=== PATIENT | male | born 1995 | race Caucasian/White ===

== ENCOUNTER 2018-10-26 09:14 | Emergency (ER) | payer MEDICAID ==
[~2018-10-26] VITALS: Ht 182.9 cm; Wt 90.0 kg
[2018-10-26] MEDS ORDERED: normal saline 1000ML IV soln IVB ONE (09:40)
[2018-10-26] MEDS ORDERED: diphenhydrAMINE 50 mg/ml inj IV ONE (09:40)
[2018-10-26] MEDS ORDERED: ondansetron/PF 4mg/2ml inj IV ONE (09:40)
[2018-10-26] MEDS ORDERED: methylPREDNISolone sod succ 125mg/2ml vial IV ONE (09:40)
[2018-10-26 10:46] LABS: BASOPHILS % (AUTO) 0.2 % (0-1); EOSINOPHILS # (AUTO) 0.8 X10'3 (0-0.9); EOSINOPHILS % (AUTO) 5.9 % (0-6); HEMATOCRIT 48.1 % (42.0-52.0); HEMOGLOBIN 16.6 g/dl (14.0-17.9); LYMPHOCYTES # (AUTO) 2.4 X10'3 (1.1-4.8); LYMPHOCYTES % (AUTO) 17.7 % (21-51); MEAN CORPUSCULAR HEMOGLOBIN 30.7 PG (27.0-31.0); MEAN CORPUSCULAR HGB CONC 34.5 g/dL (33.0-36.5); MEAN CORPUSCULAR VOLUME 88.9 FL (78-98); MEAN PLATELET VOLUME 8.7 FL (7.4-10.4); MONOCYTES # (AUTO) 0.9 X10'3 (0-0.9); MONOCYTES % (AUTO) 6.6 % (2-12); NEUTROPHILS # (AUTO) 9.4 X10'3 (1.8-7.7); NEUTROPHILS % (AUTO) 69.6 % (42-75); PLATELET COUNT 216 X10'3 (140-440); RED BLOOD COUNT 5.42 X10'6 (4.70-6.10); RED CELL DISTRIBUTION WIDTH 13.1 % (11.5-14.5); WHITE BLOOD COUNT 13.5 X10'3 (4.5-11.0)
[2018-10-26 10:54] LABS: ALANINE AMINOTRANSFERASE 28 U/L (12-78); ALBUMIN 4.1 G/DL (3.4-5.0); ALBUMIN/GLOBULIN RATIO 1.1 (1.1-1.5); ALKALINE PHOSPHATASE 126 IU/L (46-116); ANION GAP 12 (8-16); ASPARTATE AMINO TRANSFERASE 24 U/L (10-37); BILIRUBIN,TOTAL 0.7 MG/DL (0.1-1.0); BLOOD UREA NITROGEN 21 MG/DL (7-18); BUN/CREATININE RATIO 17.1 (5.4-32.0); CALCIUM 9.4 MG/DL (8.5-10.1); CHLORIDE 103 MMOL/L (99-107); CREATININE 1.23 MG/DL (0.60-1.10); GLUCOSE 107 MG/DL (70-104); POTASSIUM 3.8 MMOL/L (3.5-5.1); SODIUM 139 MMOL/L (135-145); TOTAL CARBON DIOXIDE 24.1 MMOL/L (24-32); TOTAL PROTEIN 7.8 G/DL (6.4-8.2); eGFR 74 ML/MIN
[2018-10-26] MEDS ORDERED: ONDA4TAB12 PO (11:08)
[2018-10-26] MEDS ORDERED: PRED20TA PO (11:14)
[2018-10-26 11:18] VITALS: BP 108/74
== END 2018-10-26 11:20 | disposition home or self-care (01) ==
LOC: ER 09:14
DX: T78.40XA Allergy, unspecified, initial encounter (principal); J45.909 Unspecified asthma, uncomplicated; G80.9 Cerebral palsy, unspecified; F12.90 Cannabis use, unspecified, uncomplicated; Z88.1 Allergy status to other antibiotic agents; Z79.899 Other long term (current) drug therapy; X58.XXXA Exposure to other specified factors, initial encounter
CPT/HCPCS: 36415; 80053; 85025; 96374; 96375; 99283; J1200; J2405; J2930; J7030

== ENCOUNTER 2020-08-25 01:31 | Inpatient (IN) | payer MEDICAID ==
[2020-08-25] VITALS (15 sets, daily range): BP systolic 117–143; BP diastolic 72–92
[~2020-08-25] VITALS: Ht 182.9 cm; Wt 88.5 kg
[~2020-08-25 01:31] MED LIST: ONDA4TAB12 PO
[2020-08-25] MEDS ORDERED: LORazepam 2 mg/ml vial IM ONE (02:20)
[2020-08-25] MEDS ORDERED: LORazepam 2 mg/ml vial ONE (02:20)
[2020-08-25] MEDS ORDERED: normal saline 1000ML IV soln IVB ONE ×2 (02:45→05:00)
[2020-08-25] MEDS ORDERED: magnesium 2GM in 50ml NS 50 ML IV ONE (02:45)
[2020-08-25] MEDS ORDERED: phenobarbital inj 260 MG in normal saline 100ml IV soln 100 ML IV ONE ×2 (02:45→03:05)
[2020-08-25] MEDS ORDERED: thiamine inj. 100 MG in normal saline 100ml IV soln 99 ML IV ONE (02:45)
[2020-08-25 02:56] LABS: BASOPHILS # (AUTO) 0.1 X10'3 (0-0.2); BASOPHILS % (AUTO) 0.2 % (0-1); EOSINOPHILS # (AUTO) 0.1 X10'3 (0-0.9); EOSINOPHILS % (AUTO) 0.2 % (0-6); HEMATOCRIT 50.4 % (42.0-52.0); HEMOGLOBIN 16.7 g/dl (14.0-17.9); LYMPHOCYTES # (AUTO) 1.4 X10'3 (1.1-4.8); LYMPHOCYTES % (AUTO) 5.1 % (21-51); MEAN CORPUSCULAR HEMOGLOBIN 31.3 PG (27.0-31.0); MEAN CORPUSCULAR HGB CONC 33.1 g/dL (33.0-36.5); MEAN CORPUSCULAR VOLUME 94.7 FL (78-98); MONOCYTES # (AUTO) 1.9 X10'3 (0-0.9); MONOCYTES % (AUTO) 6.7 % (2-12); NEUTROPHILS # (AUTO) 24.2 X10'3 (1.8-7.7); NEUTROPHILS % (AUTO) 87.8 % (42-75); PLATELET COUNT 313 X10'3 (140-440); RED BLOOD COUNT 5.32 X10'6 (4.70-6.10); RED CELL DISTRIBUTION WIDTH 12.8 % (11.5-14.5)
[2020-08-25 02:58] LABS: WHITE BLOOD COUNT 27.6 X10'3 (4.5-11.0)
[2020-08-25] MEDS ORDERED: phenobarbital inj 260 MG in normal saline 100ml IV soln 98 ML IV ONE (03:00)
[2020-08-25 03:13] LABS: ALANINE AMINOTRANSFERASE 26 U/L (12-78); ALBUMIN 4.7 G/DL (3.4-5.0); ALBUMIN/GLOBULIN RATIO 1.1 (1.1-1.5); ALKALINE PHOSPHATASE 163 IU/L (46-116); ANION GAP 28 (8-16); ASPARTATE AMINO TRANSFERASE 27 U/L (10-37); BILIRUBIN,TOTAL 0.4 MG/DL (0.1-1.0); BLOOD UREA NITROGEN 12 MG/DL (7-18); BUN/CREATININE RATIO 8.3 (5.4-32.0); CALCIUM 9.3 MG/DL (8.5-10.1); CHLORIDE 103 MMOL/L (99-107); CREATININE 1.44 MG/DL (0.60-1.10); ETHANOL < 0.010 GM/DL (0.0-0.010); GLUCOSE 212 MG/DL (70-104); MAGNESIUM 2.8 MG/DL (1.5-2.4); SODIUM 144 MMOL/L (135-145); TOTAL PROTEIN 9.1 G/DL (6.4-8.2); eGFR 60 ML/MIN
[2020-08-25 03:24] LABS: POTASSIUM 2.9 MMOL/L (3.5-5.1)
[2020-08-25 03:25] LABS: TOTAL CARBON DIOXIDE 13.3 MMOL/L (24-32)
[2020-08-25] MEDS ORDERED: dexamethasone sod phosphate 10mg/ml inj IV STA (03:36)
[2020-08-25] MEDS ORDERED: CefTRIAXone 2gm/D5W 50ml BAG 50 ML IV ONE (03:40)
[2020-08-25] MEDS ORDERED: iohexol 350MG/ML 100ml bottle IV ONE ×2 (04:57→06:45)
[2020-08-25] MEDS ORDERED: LIDOcaine 2% 10ml TOPICAL JELLY (Urojet) TP ONE (05:00)
[2020-08-25 05:21] LABS: GLUCOSE,CSF 131 MG/DL (40-75); TOTAL PROTEIN,CSF 43 MG/DL (15-45)
[2020-08-25 05:33] LABS: CLARITY,URINE SLIGHTLY CLOUDY (Clear); COLOR,URINE YELLOW (Yellow); GLUCOSE, URINE 100 mg/dl (Neg); KETONES,URINE 15 mg/dl (Neg); LEUKOCYTE ESTERASE ,URINE NEGATIVE (Neg); NITRITES, URINE NEGATIVE (Neg); OCCULT BLOOD,URINE LARGE (Neg); PROTEIN,URINE 30 mg/dl (Neg); UROBILINOGEN,URINE 0.2 E.U/dL (0.2-1.0)
[2020-08-25 05:48] LABS: UA COLLECTION TYPE FOLEY CATH
[2020-08-25 05:49] LABS: WBC,URINE 0-4 /HPF (0-4)
[2020-08-25 05:50] LABS: BACTERIA,URINE FEW /HPF (Neg); HYALINE CASTS 0-3 /LPF (NEGATIVE); SQUAMOUS EPITHELIAL CELL,UR FEW /LPF (FEW); URIC ACID CRYSTALS 4+ /HPF (NEGATIVE)
[2020-08-25] MEDS ORDERED: vancomycin/NS 1 GM ADD-VANTAGE 250 ML IV ONE (05:50)
[2020-08-25 06:06] LABS: APPEARANCE,CSF CLEAR; CSF RBC 32 /CU MM (0); CSF SUPERNATANT COLOR COLORLESS; CSF VOLUME 7.5 ML; TUBE# COUNTED 1
[2020-08-25 06:06] LABS: URINE AMPHETAMINE SCREEN NEGATIVE (Neg); URINE BARBITUATE SCREEN NEGATIVE (Neg); URINE BENZODIAZEPINES SCREEN NEGATIVE (Neg); URINE CANNABINOID SCREEN POSITIVE (Neg); URINE COCAINE SCREEN NEGATIVE (Neg); URINE METHADONE SCREEN NEGATIVE (Neg); URINE OPIATE SCREEN NEGATIVE (Neg); URINE PHENCYCLIDINE SCREEN NEGATIVE (Neg)
[2020-08-25 06:07] LABS: ABG BASE EXCESS -5.1 mmol/L (-2.0-2.0); ABG HCO3 19.3 mmol/L (22.0-26.0); ABG OXYGEN SATURATION 92.7 % (94-97); ABG PCO2 (T) 33.8 mmHg (35.0-48.0); ABG PO2 (T) 63.6 mmHg (75.0-100.0); ALLEN'S TEST POSITIVE; FCOHb 0.5 % (0.0-3.9); FMetHb 0.3 % (0.0-1.5); PATIENT TEMPERATURE 36.4; RESPIRATORY RATE 18 b/min
[2020-08-25 06:10] LABS: CSF WBC CT 7 /CU MM (0-5)
[2020-08-25 06:11] LABS: APPEARANCE,CSF CLEAR; CSF SUPERNATANT COLOR COLORLESS; CSF VOLUME 7.5 ML; TUBE# COUNTED 4
[2020-08-25 06:12] LABS: CSF RBC 1 /CU MM (0); CSF WBC CT 7 /CU MM (0-5)
[2020-08-25 06:33] LABS: C-REACTIVE PROTEIN 0.26 MG/DL (0.0-0.5); FERRITIN 176 NG/ML (26-388); LACTATE DEHYDROGENASE 343 U/L (85-227)
[2020-08-25 06:39] LABS: HEMOGLOBIN A1C 5.7 % (4.5-6.2)
--- NOTE | 2020-08-25 06:40 | NUR ---
TELE NEURO IN PROGRESS
[2020-08-25] MEDS ORDERED: Potassium Cl inj 40 MEQ in normal saline 250ml IV soln 250 ML IV ONE (07:20)
--- NOTE | 2020-08-25 07:20 | NUR ---
CALLED DR. TUCKER. K 2.9 NEW ORDER 40MEQ KCL IV NOW. NO ICE CHIPS FOR NOW
[2020-08-25 07:23] LABS: PLATELET ESTIMATE NORMAL; TOTAL CELLS COUNTED 100
--- NOTE | 2020-08-25 07:47 | NUR ---
BACK FROM CT SCAN VIA RNEY.. EPISODE OF VOMITING X 1 BEFORE CTA STARTED.
--- NOTE | 2020-08-25 08:17 | NUR ---
Dana estrada in [facility] - 08/25/20 at [address] zapata at bedside
[2020-08-25] MEDS ORDERED: Potassium Cl 40 MEQ in sodium chloride 0.45% 500 ML IV ONE (08:30)
--- NOTE | 2020-08-25 08:45 | NUR ---
NO SZ ACTIVITY NOTED
[2020-08-25] MEDS ORDERED: magnesium hydroxide 30ml (MOM) UD suspension PO PRN (09:10)
[2020-08-25] MEDS ORDERED: morphine 4 MG/ML inj SYRINge IV PRN (09:10)
[2020-08-25] MEDS ORDERED: normal saline 1000ml 1,000 ML IV SCH (09:10)
[2020-08-25] MEDS ORDERED: acetaminophen 325mg tablet PO PRN ×2 (09:10)
[2020-08-25] MEDS ORDERED: potassium Cl 20 mEq SR tablet PO PRN (09:10)
--- NOTE | 2020-08-25 10:30 | NUR ---
Pt arrived to unit from ED via gurney. Drowsy, respirations unlabored.
[2020-08-25] MEDS: K, MAG and/or Phos replacement - Verify level? MC SCH (11:00)
[2020-08-25] MEDS ORDERED: NO HOME MEDS (11:13)
[2020-08-25] MEDS: normal saline 1000ml 1,000 ML IV SCH ×2 (12:38→19:57)
[2020-08-25] MEDS: ondansetron/PF 4mg/2ml inj IV PRN ×2 (13:41→23:34)
[2020-08-25] MEDS: LORazepam 2 mg/ml vial IV PRN (16:25)
[2020-08-25] MEDS: piperacillin/tazo 3.375gm/50ml 50 ML IV SCH ×2 (17:03→23:40)
--- NOTE | 2020-08-25 18:24 | NUR ---
Problems reprioritized. Patient report given, questions answered & plan of care reviewed with CHRISTIANE De León.
[2020-08-25] MEDS: vancomycin/NS 1 GM ADD-VANTAGE 250 ML IV SCH (19:56)
[2020-08-25] MEDS: morphine 2 MG/ML inj. syringe IV PRN (23:34)
[2020-08-26] VITALS (15 sets, daily range): BP systolic 119–150; BP diastolic 51–92
[2020-08-26] MEDS: LORazepam 2 mg/ml vial IV PRN (00:36)
[2020-08-26] MEDS ORDERED: metoclopramide 5 mg/ml inj IV ONE (01:20)
[2020-08-26] MEDS: albuterol 2.5 MG/3 ML nebule NEB PRN (02:01)
[2020-08-26] MEDS: vancomycin/NS 1 GM ADD-VANTAGE 250 ML IV SCH ×2 (04:27→17:50)
[2020-08-26] MEDS: normal saline 1000ml 1,000 ML IV SCH (04:28)
[2020-08-26] MEDS: ondansetron/PF 4mg/2ml inj IV PRN (07:12)
[2020-08-26] MEDS: morphine 2 MG/ML inj. syringe IV PRN (07:12)
[2020-08-26] MEDS: piperacillin/tazo 3.375gm/50ml 50 ML IV SCH ×2 (07:13→15:28)
[2020-08-26 07:44] LABS: ALANINE AMINOTRANSFERASE 35 U/L (12-78); ALBUMIN 3.6 G/DL (3.4-5.0); ALBUMIN/GLOBULIN RATIO 1.1 (1.1-1.5); ALKALINE PHOSPHATASE 107 IU/L (46-116); ANION GAP 9 (8-16); ASPARTATE AMINO TRANSFERASE 121 U/L (10-37); BILIRUBIN,TOTAL 0.7 MG/DL (0.1-1.0); BLOOD UREA NITROGEN 10 MG/DL (7-18); BUN/CREATININE RATIO 10.1 (5.4-32.0); CALCIUM 8.3 MG/DL (8.5-10.1); CHLORIDE 107 MMOL/L (99-107); CREATININE 0.99 MG/DL (0.60-1.10); GLUCOSE 89 MG/DL (70-104); POTASSIUM 3.4 MMOL/L (3.5-5.1); SODIUM 141 MMOL/L (135-145); TOTAL CARBON DIOXIDE 24.6 MMOL/L (24-32); eGFR > 90 ML/MIN
[2020-08-26 07:51] LABS: BASOPHILS % (AUTO) 0.2 % (0-1); EOSINOPHILS % (AUTO) 0.4 % (0-6); HEMATOCRIT 40.5 % (42.0-52.0); HEMOGLOBIN 13.8 g/dl (14.0-17.9); LYMPHOCYTES % (AUTO) 9.3 % (21-51); MEAN CORPUSCULAR VOLUME 91.2 FL (78-98); MEAN PLATELET VOLUME 9.4 FL (7.4-10.4); MONOCYTES # (AUTO) 0.7 X10'3 (0-0.9); MONOCYTES % (AUTO) 6.2 % (2-12); NEUTROPHILS # (AUTO) 9.4 X10'3 (1.8-7.7); NEUTROPHILS % (AUTO) 83.9 % (42-75); PLATELET COUNT 204 X10'3 (140-440); RED BLOOD COUNT 4.44 X10'6 (4.70-6.10); RED CELL DISTRIBUTION WIDTH 12.9 % (11.5-14.5); WHITE BLOOD COUNT 11.3 X10'3 (4.5-11.0)
[2020-08-26] MEDS: K, MAG and/or Phos replacement - Verify level? MC SCH (08:00)
[2020-08-26] MEDS: HYDROcodone/acetaminophen 5mg/325mg tablet PO PRN (11:30)
[2020-08-26] MEDS: potassium Cl 20 mEq SR tablet PO PRN ×3 (11:30→19:52)
[2020-08-27] MEDS: piperacillin/tazo 3.375gm/50ml 50 ML IV SCH ×2 (00:12→07:31)
[2020-08-27 02:00] VITALS: BP 147/106
[2020-08-27] MEDS: LORazepam 2 mg/ml vial IV PRN (02:05)
[2020-08-27] MEDS ORDERED: VANCOMYCIN LEVEL IV ONE (04:30)
[2020-08-27] MEDS: vancomycin/NS 1 GM ADD-VANTAGE 250 ML IV SCH (05:24)
[2020-08-27 06:26] LABS: ALANINE AMINOTRANSFERASE 78 U/L (12-78); ALBUMIN 3.5 G/DL (3.4-5.0); ALKALINE PHOSPHATASE 97 IU/L (46-116); ANION GAP 13 (8-16); ASPARTATE AMINO TRANSFERASE 351 U/L (10-37); BILIRUBIN,TOTAL 0.8 MG/DL (0.1-1.0); BLOOD UREA NITROGEN 6 MG/DL (7-18); BUN/CREATININE RATIO 7.3 (5.4-32.0); CALCIUM 8.9 MG/DL (8.5-10.1); CHLORIDE 105 MMOL/L (99-107); CREATININE 0.82 MG/DL (0.60-1.10); GLUCOSE 87 MG/DL (70-104); POTASSIUM 3.8 MMOL/L (3.5-5.1); SODIUM 142 MMOL/L (135-145); TOTAL CARBON DIOXIDE 24.1 MMOL/L (24-32); TOTAL PROTEIN 6.9 G/DL (6.4-8.2); VANCOMYCIN,TROUGH 6.3 UG/ML (6.0-14.0); eGFR > 90 ML/MIN
[2020-08-27 07:09] LABS: BASOPHILS # (AUTO) 0.1 X10'3 (0-0.2); BASOPHILS % (AUTO) 0.7 % (0-1); EOSINOPHILS # (AUTO) 0.3 X10'3 (0-0.9); EOSINOPHILS % (AUTO) 4.4 % (0-6); HEMOGLOBIN 14.3 g/dl (14.0-17.9); LYMPHOCYTES # (AUTO) 1.4 X10'3 (1.1-4.8); LYMPHOCYTES % (AUTO) 18.4 % (21-51); MEAN CORPUSCULAR HEMOGLOBIN 30.9 PG (27.0-31.0); MEAN CORPUSCULAR VOLUME 90.8 FL (78-98); MEAN PLATELET VOLUME 8.6 FL (7.4-10.4); MONOCYTES # (AUTO) 0.6 X10'3 (0-0.9); NEUTROPHILS # (AUTO) 5.2 X10'3 (1.8-7.7); NEUTROPHILS % (AUTO) 68.5 % (42-75); PLATELET COUNT 207 X10'3 (140-440); RED BLOOD COUNT 4.62 X10'6 (4.70-6.10); RED CELL DISTRIBUTION WIDTH 12.9 % (11.5-14.5); WHITE BLOOD COUNT 7.6 X10'3 (4.5-11.0)
[2020-08-27 07:18] VITALS: BP 137/87
[2020-08-27] MEDS: HYDROcodone/acetaminophen 5mg/325mg tablet PO PRN (07:31)
[2020-08-27] MEDS: albuterol 2.5 MG/3 ML nebule NEB PRN (07:52)
--- NOTE | 2020-08-27 07:53 | NUR ---
No seizure activity noted at this time. Pt. A & O x 4. Paged MD for diet order and to discuss Lovenox written in MD notes.
[2020-08-27] MEDS: K, MAG and/or Phos replacement - Verify level? MC SCH (08:00)
[2020-08-27] MEDS: enoxaparin 30mg/0.3ml syringe SUBCUT SCH ×2 (09:34→20:10)
--- NOTE | 2020-08-27 09:40 | NUR ---
PAGER ID: [phone] MESSAGE: Blaze Pisano [id number] C/O heartburn after eating broth this AM. May I have an order for Malox? Mother will be here in 20 minutes and is requesting to speak with you. Thank you, Nazia [phone]
[2020-08-27] MEDS: ondansetron/PF 4mg/2ml inj IV PRN (10:39)
--- NOTE | 2020-08-27 10:53 | NUR ---
Pt. threw up 2 x this morning after complaining of heartburn. Zofran given per order.
[2020-08-27 11:00] VITALS: BP 134/86
--- NOTE | 2020-08-27 11:59 | NUR ---
Dr. Lala to see pt Dr. Lala into see the patient at [facility] after tele neuro visit. Dr. lala indicate plan to observe pt another day, MRI with contrast today/seizure medication per Tele neurologist recommendation. Dr. Lala stated he would discontinue antibiotics, as WBC elevation resolved and no infection in CSF is suspected. New order for redraw lactic acid, and protonix 40MG Qam for s/sx heartburn/Gerd. Dr. lala indicated that only one liver enzyme is elevated, and attributes this to recent medications. Pt with his mother at bedside verbalized understanding of new orders and plan of care.
[2020-08-27] MEDS: oxcarbazepine 150mg tablet PO SCH ×2 (12:30→20:10)
[2020-08-27] MEDS ORDERED: vancomycin/NS 1 GM ADD-VANTAGE 250 ML X 1 DOSE IV SCH (13:00)
[2020-08-27 15:00] VITALS: BP 125/63
[2020-08-27] MEDS ORDERED: GADOTERATE MEGLUMINE 7.5 MMOL/15 ML VIAL IV ONE (15:26)
[2020-08-27 18:00] VITALS: BP 133/91
--- NOTE | 2020-08-27 18:00 | NUR ---
report received from CHRISTIANE Mandujano
--- NOTE | 2020-08-27 18:14 | NUR ---
Gave report to Amrit, traveler CHRISTIANE.
[2020-08-27] MEDS: lactobacillus rhamnosus 10,000 MMU CELLS/CAPSULE PO SCH (20:10)
[2020-08-27 22:00] VITALS: BP 117/75
[2020-08-28 02:00] VITALS: BP 137/91
[2020-08-28] MEDS: HYDROcodone/acetaminophen 5mg/325mg tablet PO PRN (03:16)
[2020-08-28] MEDS ORDERED: VANCOMYCIN LEVEL IV ONE (04:30)
[2020-08-28 04:52] LABS: BASOPHILS % (AUTO) 0.9 % (0-1); EOSINOPHILS # (AUTO) 0.3 X10'3 (0-0.9); EOSINOPHILS % (AUTO) 7.2 % (0-6); HEMATOCRIT 41.8 % (42.0-52.0); HEMOGLOBIN 14.6 g/dl (14.0-17.9); LYMPHOCYTES # (AUTO) 0.7 X10'3 (1.1-4.8); LYMPHOCYTES % (AUTO) 14.6 % (21-51); MEAN CORPUSCULAR HEMOGLOBIN 31.4 PG (27.0-31.0); MEAN CORPUSCULAR VOLUME 89.5 FL (78-98); MEAN PLATELET VOLUME 8.3 FL (7.4-10.4); MONOCYTES # (AUTO) 0.8 X10'3 (0-0.9); MONOCYTES % (AUTO) 16.8 % (2-12); NEUTROPHILS # (AUTO) 2.7 X10'3 (1.8-7.7); NEUTROPHILS % (AUTO) 60.5 % (42-75); PLATELET COUNT 200 X10'3 (140-440); RED BLOOD COUNT 4.67 X10'6 (4.70-6.10); RED CELL DISTRIBUTION WIDTH 12.9 % (11.5-14.5); WHITE BLOOD COUNT 4.5 X10'3 (4.5-11.0)
[2020-08-28 04:55] LABS: ALANINE AMINOTRANSFERASE 117 U/L (12-78); ALBUMIN 3.6 G/DL (3.4-5.0); ALKALINE PHOSPHATASE 99 IU/L (46-116); ANION GAP 11 (8-16); ASPARTATE AMINO TRANSFERASE 472 U/L (10-37); BILIRUBIN,TOTAL 0.5 MG/DL (0.1-1.0); BLOOD UREA NITROGEN 7 MG/DL (7-18); BUN/CREATININE RATIO 8.3 (5.4-32.0); CHLORIDE 101 MMOL/L (99-107); CREATININE 0.84 MG/DL (0.60-1.10); GLUCOSE 93 MG/DL (70-104); POTASSIUM 3.5 MMOL/L (3.5-5.1); SODIUM 139 MMOL/L (135-145); TOTAL CARBON DIOXIDE 27.4 MMOL/L (24-32); TOTAL PROTEIN 7.3 G/DL (6.4-8.2); VANCOMYCIN,TROUGH 1.5 UG/ML (6.0-14.0); eGFR > 90 ML/MIN
[2020-08-28 06:00] VITALS: BP 137/88
--- NOTE | 2020-08-28 06:17 | NUR ---
Report given to CHRISTIANE Anderson.
[2020-08-28] MEDS ORDERED: pantoprazole 40mg Tablet.DR PO SCH (07:30)
[2020-08-28] MEDS: lactobacillus rhamnosus 10,000 MMU CELLS/CAPSULE PO SCH (07:47)
[2020-08-28] MEDS: oxcarbazepine 150mg tablet PO SCH (07:47)
[2020-08-28] MEDS: enoxaparin 30mg/0.3ml syringe SUBCUT SCH (07:48)
[2020-08-28] MEDS: K, MAG and/or Phos replacement - Verify level? MC SCH (07:49)
[2020-08-28] MEDS ORDERED: OXCA150T14 PO (09:25)
[2020-08-28] MEDS ORDERED: OMEP20CA15 PO (09:25)
== END 2020-08-28 09:55 | disposition home or self-care (01) | DRG 469 ==
LOC: ER 01:31 → ED HOLD 09:10 → ICU 2S 10:28 → PCU 3S 08-26 16:00
PROVIDERS: ADMIT Surgery Surgical Critical Care; ATTEND Surgery Surgical Critical Care
PROC: B32T1ZZ Computerized Tomography (CT Scan) of Left Pulmonary Artery using Low Osmolar Contrast (ICD-10-PCS; 2020-08-25)
PROC: B32S1ZZ Computerized Tomography (CT Scan) of Right Pulmonary Artery using Low Osmolar Contrast (ICD-10-PCS; 2020-08-25)
PROC: 4A00X4Z Measurement of Central Nervous Electrical Activity, External Approach (ICD-10-PCS; principal; 2020-08-26)
DX: N17.9 Acute kidney failure, unspecified (principal); E87.2 Acidosis; E86.0 Dehydration; E87.6 Hypokalemia; F12.90 Cannabis use, unspecified, uncomplicated; F43.10 Post-traumatic stress disorder, unspecified; Z20.822 Contact with and (suspected) exposure to COVID-19; G40.909 Epilepsy, unspecified, not intractable, without status epilepticus; J45.909 Unspecified asthma, uncomplicated; Z82.0 Family history of epilepsy and other diseases of the nervous system; Z90.49 Acquired absence of other specified parts of digestive tract
CPT/HCPCS: 36415; 36600; 62270; 70450; 70496; 70498; 70551; 70553; 71275; 74174; 74176; 80053; 80202; 80305; 80320; 81001; 82728; 82803; 82945; 82948; 83036; 83605; 83615; 83735; 84145; 84157; 84443; 84484; 85007; 85018; 85025; 85384; 85610; 86140; 87015; 87040; 87070; 87081; 89051; 93005; 94640; 94760; 95816; 96365; 99291; 99292; A9575; G0378; J0696; J1100; J1650; J2060; J2270; J2405; J2543; J2560; J2765; J3370; J3411; J3475; J3480; J7030; Q9967; U0003; U0005

== ENCOUNTER 2021-04-06 17:45 | Emergency (ER) | payer MEDICAID ==
[~2021-04-06] VITALS: Ht 182.9 cm; Wt 100.0 kg
[~2021-04-06 17:45] MED LIST changes: +OMEP20CA15 PO; -ONDA4TAB12 PO; +OXCA150T14 PO
[2021-04-06] MEDS ORDERED: LORazepam 2 mg/ml vial IV ONE (17:50)
[2021-04-06] MEDS ORDERED: normal saline 1000ML IV soln IVB ONE (17:50)
[2021-04-06] MEDS ORDERED: dexamethasone sod phosphate 10mg/ml inj IV STA (17:50)
[2021-04-06] MEDS ORDERED: metoclopramide 5 mg/ml inj IV ONE (17:50)
[2021-04-06] MEDS ORDERED: ketorolac trometh. 30mg/ml inj. IV ONE (17:50)
[2021-04-06 20:24] VITALS: BP 142/95
== END 2021-04-06 20:25 | disposition home or self-care (01) ==
LOC: ER 17:46
DX: G43.909 Migraine, unspecified, not intractable, without status migrainosus (principal); R11.2 Nausea with vomiting, unspecified; J45.909 Unspecified asthma, uncomplicated; F12.90 Cannabis use, unspecified, uncomplicated; Z86.69 Personal history of other diseases of the nervous system and sense organs; Z88.1 Allergy status to other antibiotic agents; Z91.018 Allergy to other foods; Z79.899 Other long term (current) drug therapy
CPT/HCPCS: 96361; 96374; 96375; 99284; J1100; J1885; J2060; J2765; J7030

== ENCOUNTER 2021-04-18 03:20 | Emergency (ER) | payer MEDICAID ==
[~2021-04-18] VITALS: Ht 182.9 cm; Wt 100.0 kg
[2021-04-18 03:28] VITALS: BP 131/88
[2021-04-18] MEDS ORDERED: LIDOcaine 1% W/epiNEPHrine 1:200,000 10ml vial IJ ONE (03:55)
[2021-04-18] MEDS ORDERED: HYDROcodone/acetaminophen 5mg/325mg tablet PO ONE (03:55)
[2021-04-18] MEDS ORDERED: amox tr/potassium clavulanate 875/125mg TAB PO ONE (03:55)
[2021-04-18] MEDS ORDERED: LIDOcaine 1% W/epiNEPHrine 1:100,000 20ml vial IJ ONE (04:00)
--- NOTE | 2021-04-18 07:29 | NUR ---
Patient wound wrapped with gauze roll and patient instructed in wound care and to return to ER in ten days for suture removal
== END 2021-04-18 07:16 | disposition home or self-care (01) ==
LOC: ER 03:20
DX: S61.412A Laceration without foreign body of left hand, initial encounter (principal); G43.909 Migraine, unspecified, not intractable, without status migrainosus; J44.9 Chronic obstructive pulmonary disease, unspecified; F12.10 Cannabis abuse, uncomplicated; Z91.018 Allergy to other foods; W45.8XXA Other foreign body or object entering through skin, initial encounter; Y93.89 Activity, other specified; Y92.89 Other specified places as the place of occurrence of the external cause; Y99.8 Other external cause status
CPT/HCPCS: 12002; 99283

== ENCOUNTER 2021-05-17 02:00 | Emergency (ER) | payer MEDICAID ==
[~2021-05-17] VITALS: Ht 182.9 cm; Wt 100.0 kg
[2021-05-17 02:11] VITALS: BP 139/101
[2021-05-17] MEDS ORDERED: metoclopramide 5 mg/ml inj IM ONE (02:40)
[2021-05-17] MEDS ORDERED: ketorolac trometh inj. 60 MG/2 ML VIAL IM ONE (02:40)
[2021-05-17] MEDS ORDERED: ONDA4TAB6 PO (03:18)
== END 2021-05-17 03:36 | disposition home or self-care (01) ==
LOC: ER 02:01
DX: U07.1 COVID-19 (principal); G43.909 Migraine, unspecified, not intractable, without status migrainosus; R11.2 Nausea with vomiting, unspecified; G40.909 Epilepsy, unspecified, not intractable, without status epilepticus; J45.909 Unspecified asthma, uncomplicated; F12.90 Cannabis use, unspecified, uncomplicated; Z91.018 Allergy to other foods; Z88.1 Allergy status to other antibiotic agents; Z79.899 Other long term (current) drug therapy
CPT/HCPCS: 36415; 96372; 99284; J1885; J2765; U0003; U0005

== ENCOUNTER 2022-08-28 20:46 | Emergency (ER) | payer MEDICAID ==
[~2022-08-28] VITALS: Ht 182.9 cm; Wt 96.8 kg
[~2022-08-28 20:46] MED LIST changes: +ONDA4TAB6 PO
[2022-08-28 21:00] VITALS: BP 135/89
[2022-08-28] MEDS ORDERED: ondansetron 4mg rapidly disintigrating tab PO ONE (22:00)
[2022-08-28] MEDS ORDERED: diphenhydrAMINE 50 mg/ml inj IM ONE (22:00)
[2022-08-28] MEDS ORDERED: proCHLORperazine 10 MG/2 ml inj IM ONE (22:00)
[2022-08-28] MEDS ORDERED: ONDA4TAB12 PO (22:39)
--- NOTE | 2022-08-28 22:47 | NUR ---
passed PO challenge
== END 2022-08-28 22:59 | disposition home or self-care (01) ==
LOC: ER 20:47
DX: K29.70 Gastritis, unspecified, without bleeding (principal); J45.909 Unspecified asthma, uncomplicated; F12.90 Cannabis use, unspecified, uncomplicated; G43.909 Migraine, unspecified, not intractable, without status migrainosus; Z91.018 Allergy to other foods; Z91.041 Radiographic dye allergy status
CPT/HCPCS: 96372; 99284; J0780; J1200

== ENCOUNTER 2023-01-27 14:12 | Emergency (ER) | payer MEDICAID ==
[~2023-01-27] VITALS: Ht 182.9 cm; Wt 95.5 kg
[~2023-01-27 14:12] MED LIST changes: +ONDA4TAB12 PO
[2023-01-27 14:21] VITALS: BP 131/85; PULSE 75; RESP 20; TEMP 98.4; O2SAT 98
== END 2023-01-27 18:37 | disposition left against medical advice (07) ==
LOC: ER 14:12
DX: M54.50 Low back pain, unspecified (principal); Z53.21 Procedure and treatment not carried out due to patient leaving prior to being seen by health care provider
CPT/HCPCS: 99281

== ENCOUNTER 2023-01-27 22:10 | Emergency (ER) | payer MEDICAID ==
[~2023-01-27] VITALS: Ht 182.9 cm; Wt 91.8 kg
[2023-01-27 22:18] VITALS: BP 148/80; PULSE 101; RESP 18; TEMP 97.8; O2SAT 96
== END 2023-01-28 01:38 | disposition left against medical advice (07) ==
LOC: ER 22:10
DX: M54.50 Low back pain, unspecified (principal); Z53.21 Procedure and treatment not carried out due to patient leaving prior to being seen by health care provider
CPT/HCPCS: 99281

== ENCOUNTER 2024-03-01 13:59 | Emergency (ER) | payer MEDICAID ==
[~2024-03-01] VITALS: Ht 182.9 cm; Wt 100.0 kg
[~2024-03-01 13:59] MED LIST changes: +ONDA-243 PO; -ONDA4TAB12 PO
[2024-03-01] MEDS: normal saline 1000ML IV soln IVB ONE (15:56)
[2024-03-01] MEDS: levetiracetam inj 1,500 MG in normal saline 100ml IV soln 100 ML IV STA (15:56)
[2024-03-01 17:33] VITALS: PULSE 71
[2024-03-01] MEDS ORDERED: OXCA300T16 PO (18:03)
[2024-03-01 18:27] LABS: BASOPHILS % (AUTO) 0.1 % (0-1); EOSINOPHILS % (AUTO) 0.2 % (0-6); HEMATOCRIT 43.6 % (42.0-52.0); HEMOGLOBIN 14.6 g/dl (14.0-17.9); LYMPHOCYTES # (AUTO) 0.9 X10'3 (1.1-4.8); LYMPHOCYTES % (AUTO) 7.4 % (21-51); MEAN CORPUSCULAR HEMOGLOBIN 31.1 PG (27.0-31.0); MEAN CORPUSCULAR HGB CONC 33.6 g/dL (33.0-36.5); MEAN CORPUSCULAR VOLUME 92.6 FL (78-98); MEAN PLATELET VOLUME 8.4 FL (7.4-10.4); MONOCYTES # (AUTO) 0.7 X10'3 (0-0.9); MONOCYTES % (AUTO) 5.5 % (2-12); NEUTROPHILS # (AUTO) 10.8 X10'3 (1.8-7.7); NEUTROPHILS % (AUTO) 86.8 % (42-75); PLATELET COUNT 202 X10'3 (140-440); RED BLOOD COUNT 4.71 X10'6 (4.70-6.10); RED CELL DISTRIBUTION WIDTH 13.3 % (11.5-14.5); WHITE BLOOD COUNT 12.5 X10'3 (4.5-11.0)
[2024-03-01 19:32] VITALS: BP 131/68; RESP 20; TEMP 97.2; O2SAT 99
[2024-03-01 19:42] LABS: ALANINE AMINOTRANSFERASE 20 U/L (12-78); ALBUMIN 3.8 G/DL (3.4-5.0); ALBUMIN/GLOBULIN RATIO 1.1 (1.1-1.5); ALKALINE PHOSPHATASE 130 IU/L (46-116); ANION GAP 7 (8-16); ASPARTATE AMINO TRANSFERASE 19 U/L (10-37); BILIRUBIN,TOTAL 0.4 MG/DL (0.1-1.0); BLOOD UREA NITROGEN 9 MG/DL (7-18); BUN/CREATININE RATIO 9.4 (10.0-20.0); CALCIUM 8.7 MG/DL (8.5-10.1); CHLORIDE 105 MMOL/L (99-107); CREATININE 0.96 MG/DL (0.60-1.10); GLUCOSE 93 MG/DL (70-104); POTASSIUM 4.1 MMOL/L (3.5-5.1); SODIUM 138 MMOL/L (135-145); TOTAL CARBON DIOXIDE 26.2 MMOL/L (24-32); TOTAL PROTEIN 7.2 G/DL (6.4-8.2); eCRCL 126 ML/MIN; eGFR > 90 ML/MIN
== END 2024-03-02 00:02 | disposition home or self-care (01) ==
LOC: ER 13:59
DX: G40.89 Other seizures (principal); R11.10 Vomiting, unspecified; G43.909 Migraine, unspecified, not intractable, without status migrainosus; J45.909 Unspecified asthma, uncomplicated; F12.90 Cannabis use, unspecified, uncomplicated; Z88.1 Allergy status to other antibiotic agents; Z91.018 Allergy to other foods; Z79.899 Other long term (current) drug therapy
CPT/HCPCS: 36415; 80053; 85025; 96374; 99284; J1953; J7030; 96365